=== PATIENT | male | born 1995 | race African-American/Black ===

== ENCOUNTER 2022-09-21 13:31 | Emergency (ER) | payer OTHER ==
[~2022-09-21] VITALS: Ht 170.2 cm; Wt 72.5 kg
[2022-09-21 15:45] VITALS: BP 125/73
[2022-09-21] MEDS ORDERED: KETOROLAC 60MG/2ML VIAL IM ONE (15:45)
[2022-09-21] MEDS ORDERED: IBUP-2029 MT (21:04)
== END 2022-09-21 21:14 | disposition home or self-care (01) ==
LOC: ER 14:28
DX: S76.112A Strain of left quadriceps muscle, fascia and tendon, initial encounter (principal); J45.909 Unspecified asthma, uncomplicated; X58.XXXA Exposure to other specified factors, initial encounter; Y93.89 Activity, other specified; Y92.89 Other specified places as the place of occurrence of the external cause; Y99.8 Other external cause status
CPT/HCPCS: 73562; 76881; 96372; 99285; J1885; L1830; Z7610